=== PATIENT | male | born 1995 | race Caucasian/White ===

== ENCOUNTER 2019-06-25 12:26 | Emergency (ER) | payer OTHER ==
[~2019-06-25] VITALS: Ht 175.3 cm; Wt 68.0 kg
[2019-06-25 12:52] VITALS: BP 126/81
--- NOTE | 2019-06-25 13:05 | NUR ---
VIOLETA BANDA FOR MEDICAL CLEARENCE FOR [facility], PT WITH ALPRAZOLAM OD 13 DAYS AGO. PT ALSO HAD 2 MORE ATTEMPTS OF SUICIDE IN THE NEXT 24 HRS, PT CUT WRISTS, THESE WERE SUTURED AND TREATED THEN PT ATTEMPTED TO HANG SELF BUT BECAME AFRAID WHEN ONE SIDE OF HIS BODY BECAME NUMB SO HE RELEASED HIMSELF. PT WAS PUT ON A LEGAL HOLD AT [facility]. PT CURRENLTY CALM AND COOPERATIVE. GATHERED ALL PT BELONGINGS AND PLACED IN LOCKER. PT ALLOWED TO HAVE SHORTS HE IS NOT WEARING UNDERWEAR. PT IN SECURE RM WITH SITTER IN VIEW OF PT. VSS. UDS COLLECTED AND SENT TO LAB. DANNYD IN TO KEM PT.
--- NOTE | 2019-06-25 14:17 | NUR ---
LATE LUNCH TRAY ORDERED FOR PT, NO OTHER NEEDS AT THIS TIME.
[2019-06-25] MEDS ORDERED: PLEASE ENTER ALLERGIES MC SCH (14:30)
[2019-06-25] MEDS ORDERED: ARIPIPRAZOLE 10 MG TABLET PO ONE (14:30)
[2019-06-25] MEDS ORDERED: ARIPIPRAZOLE 10 MG TABLET ONE (14:35)
--- NOTE | 2019-06-25 15:15 | NUR ---
Patient/Caregiver given discharge instructions and they have confirmed that they understand the instructions. Patient ambulatory with steady gait.
== END 2019-06-25 15:17 | disposition home or self-care (01) ==
LOC: ED 15:00
DX: F33.9 Major depressive disorder, recurrent, unspecified (principal); Z88.5 Allergy status to narcotic agent
CPT/HCPCS: 99284